=== PATIENT | female | born 1955 | race African-American/Black ===

== ENCOUNTER → 2017-04-10 | Outpatient (CLI) | END | disposition home or self-care (01) ==

== ENCOUNTER → 2017-04-11 | Outpatient (CLI) | payer MEDICARE, OTHER ==
[~2017-04-11] MED LIST: AMLO5TAB4 PO; ATOR20TA38 PO; CIPR500T4 PO; FOLI-49 PO; LANT3I SC; LOSA100T7 PO; MAGN400T28 PO; METF1000 PO; METO-448 PO; NOVO3I SC; RIVA20TA5 PO; SOTA80TA53 PO
--- NOTE | 2017-04-12 14:56 | HKNOTE ---
DATE OF SERVICE: 04/11/2017 CHIEF COMPLAINT: Right hip pain. HISTORY OF PRESENT ILLNESS: Randi Crawley is a 61-year-old female who is here for evaluation of righ t hip pain. The patient has a history of hip dislocation when she was 9 years old. She has had tr ouble with her right hip for many, many years. She has managed until now, but now the pain has reac hed a point where it is interfering with her routine activities. Pain is associated with severe sti ffness of the right hip and pain in the right groin that radiates to the thigh. She also has shorte chong of the right lower extremity. The pain has reached a point where she would like to proceed wit h a total hip replacement. She is here for a discussion of surgery. PAST MEDICAL HISTORY: Significant for atrial fibrillation, hypertension, diabetes. MEDICATIONS: Include: 1. Metformin. 2. Insulin. 3. Xarelto. 4. Losartan. 5. Sotalol. 6. Diltiazem. 7. Lipitor. ALLERGIES: NONE. REVIEW OF SYSTEMS: Negative for chest pain, shortness of breath, nausea, vomiting, or diarrhea. Po sitive for cardiac arrhythmia and right hip pain. PHYSICAL EXAMINATION: GENERAL: Shows a pleasant female. She is anxious, awake, alert and oriented. VITAL SIGNS: Stable with a pulse rate of 81. She is 5 foot 5 inches, 191 pounds, respirations 16 per minute. She is breathing comfortably. MUSCULOSKELETAL: Right hip has 2 cm of shortening compared to left. The right hip has severely shaffer ited range of motion with flexion of 50 degrees, external rotation 0, internal rotation 0 and a fixe d flexion deformity of 30 degrees. There is no neurovascular deficit in the right lower extremity. Left hip has good range of motion. Lumbar spine is tender with no obvious deformity. IMAGING: X-rays of the right hip were reviewed and show advanced osteoarthritis with a somewhat dys plastic appearance of the hip. There is complete loss of cartilage deformity of the femoral head an d osteophyte formation. ASSESSMENT AND PLAN: A 61-year-old female with advanced arthritis of her right hip. Treatment opti ons were discussed. She would like to proceed with right total hip replacement. Anterior total hip replacement was discussed. Risks and benefits were discussed, as well. She will need a cardiology and internal medicine clearance and will be scheduled for surgery in the near future. Risks and be nefits were discussed with her in detail. She understands and agrees with the plan. Dictated By: EUGENE DENIS MD [facility]AS Conf#: [id number] DID#: [id number]
== END | disposition home or self-care (01) ==
LOC: HKI 14:37
PROVIDERS: ATTEND Orthopaedic Surgery
DX: M16.11 Unilateral primary osteoarthritis, right hip (principal)
CPT/HCPCS: G0463

== ENCOUNTER → 2017-07-18 | Outpatient (CLI) | END | disposition home or self-care (01) ==

== ENCOUNTER → 2018-01-26 | Outpatient (CLI) | END | disposition home or self-care (01) ==

== ENCOUNTER → 2018-02-23 | Outpatient (CLI) | END | disposition home or self-care (01) ==

== ENCOUNTER → 2018-03-03 | Outpatient (CLI) | END | disposition home or self-care (01) ==

== ENCOUNTER → 2018-03-03 | Outpatient (CLI) | END | disposition home or self-care (01) ==

== ENCOUNTER 2018-06-19 07:49 | Emergency (ER) | payer MEDICARE, OTHER ==
[~2018-06-19] VITALS: Ht 165.1 cm; Wt 86.0 kg
[~2018-06-19 07:49] MED LIST changes: -AMLO5TAB4 PO; +ASCO500C7 PO; +CHOL10009 PO; -CIPR500T4 PO; +DILT300T PO; +HYDR-3672 PO; +LOSA100T15 PO; -LOSA100T7 PO; +MAGN400T27 PO; -MAGN400T28 PO; -METF1000 PO; +METF100010 PO; -METO-448 PO; +SOTA160T PO; -SOTA80TA53 PO
[2018-06-19 07:51] VITALS: BP 182/74; PULSE 82; RESP 18; Ht 165.1 cm; Wt 86.0 kg
--- NOTE | 2018-06-19 08:12 | ERD ---
ER Documentation Chief Complaint Chief Complaint pt bib family with c/o right sided hip pain, starting last night, HPI 63-year-old female, with history of severe osteoarthritis of the right hip, presents to the emergency department, brought in by family, complaining of acute onset of worsening of the right side pain that started last night. The pain is sharp, constant, 7/10, no history of trauma. The patient was scheduled for a hip replacement a couple months ago that it had to be postponed due to anemia. ROS All systems reviewed and are negative except as per history of present illness. Medications Home Meds Active Scripts Hydrocodone/Acetaminophen (Shobonier 5-325 Tablet) 1 Each Tablet, 1 TAB PO BID PRN for PAIN, #10 TAB Prov:ABIGAIL BARRIOS MD 06/19/18 Reported Medications Insulin Glargine* (Lantus*) 100 Unit/Ml Soln, 15 UNIT SC QHS, #1 VIAL 03/04/18 Magnesium Oxide* (Mag-Oxide*) 400 Mg Tablet, 400 MG PO EVERY OTHER DAY, TAB 03/04/18 Atorvastatin Calcium* (Atorvastatin Calcium*) 20 Mg Tablet, 20 MG PO QHS, #30 TAB 03/04/18 Sotalol Hcl* (Sotalol Hcl*) 160 Mg Tablet, 160 MG PO BID, TAB 03/04/18 Folic Acid* (Folic Acid*) 1 Mg Tablet, 1 MG PO DAILY, TAB 03/04/18 Rivaroxaban* (Xarelto*) 20 Mg Tablet, 20 MG PO WITH DINNER, TAB 03/04/18 Losartan Potassium* (Losartan Potassium*) 100 Mg Tablet, 100 MG PO DAILY, TAB 03/04/18 Hydralazine Hcl* (Hydralazine Hcl*) 50 Mg Tab, 50 MG PO BID PRN for ELEVATED BLOOD PRESSURE, #60 TAB 03/04/18 Diltiazem Hcl* (Cardizem LA*) 300 Mg Tab.sr.24h, 300 MG PO DAILY, #30 TAB.SA 03/04/18 Cholecalciferol (Vitamin D3) 1,000 Unit Capsule, 1000 UNIT PO DAILY, CAP 03/04/18 Ascorbic Acid* (Vitamin C*) 500 Mg Capsule.sa, 500 MG PO DAILY, CAP 03/04/18 Metformin Hcl* (Metformin Hcl*) 1,000 Mg Tablet, 1000 MG PO WITH BREAKFAST DINNE, #60 TAB 03/04/18 Insulin Aspart* (Novolog Insulin Pen*) 100 Unit/Ml Soln, 0 SC .SLIDING SCALE AC, EA WITH MEALS 03/04/18 Allergies Allergies: Coded Allergies: Latex, Natural Rubber (Verified Allergy, Unknown, 03/04/18) Pork/Porcine Containing Products (Unverified Allergy, Unknown, 03/04/18) PMhx/Soc History of Surgery: Yes (gallbladder) Anesthesia Reaction: No Hx Neurological Disorder: No Hx Respiratory Disorders: No Hx Cardiac Disorders: Yes (AFIB, HTN, HIGH CHOLESTEROL) Hx Psychiatric Problems: Yes (DEPRESSION) Hx Miscellaneous Medical Probl: No Hx Alcohol Use: No Hx Substance Use: No Hx Tobacco Use: No FmHx Family History: No diabetes, No coronary disease Physical Exam Vitals Vital Signs Date Temp Pulse Resp B/P (MAP) Pulse Ox O2 O2 Flow FiO2 Time Delivery Rate 06/19/18 98.9 82 18 182/74 98 07:51 (110) Physical Exam Const: No acute distress Head: Atraumatic Eyes: Normal Conjunctiva ENT: Normal External Ears, Nose and Mouth. Neck: Full range of motion. No meningismus. Resp: Clear to auscultation bilaterally Cardio: Regular rate and rhythm, no murmurs Abd: Soft, non tender, non distended. Normal bowel sounds Skin: No petechiae or rashes Back: No midline or flank tenderness Ext: Right hip: No gross deformity, tenderness over the right great t rochanter, adequate passive range of motion. Distal neurovascular exam intact Neur: Awake and alert Psych: Normal Mood and Affect Results 24 hrs Current Medications Medications Dose Sig/Pradeep Start Time Status Last (Trade) Ordered Route PRN Stop Time Admin Dose Reason Admin 1 tab ONCE ONCE 06/19/18 DC 06/19/18 Acetaminophen PO 08:30 08:33 / 06/19/18 08:31 Hydrocodone Bitart (Shobonier (5/325)) Patient: KRIS HERRERA : 1955 Age: 63 Sex: F MR #: [id number] DOS: 06/19/18823 Ordering MD: ABIGAIL BARRIOS MD Location: [facility] Room/Bed: PROCEDURE: XR Hip. CLINICAL INDICATION: acute Rt hip pain x1d TECHNIQUE: AP and frog lateral views of the right hip were performed. COMPARISON: Hip radiograph from 04/10/2017. FINDINGS: No acute fracture detected, however evaluation is limited by osteopenia and severe degenerative joint disease with high-grade joint space narrowing marginal osteophyte formation. Small vascular phleboliths over the pelvis. IMPRESSION: Severe degenerative joint disease of the right hip without evidence of superimposed fracture, allowing for the limitation of osteopenia. RPTAT:AAJJ Physician [place] Date Time Electronically viewed and signed by Physician [place] on 06/19/2018 09:42 Procedures/MDM Acute on chronic right hip pain: no red flags. Differential diagnosis include but not limited to: Hip contusion, tendon/ligament injury, arthritis; low suspicion for fracture, dislocation, septic arthritis. Neurovascular exam grossly intact. no clinical findings suggestive of acute infectious process, no acute deformity, no edema, no rashes. Pertinent Data: X-rays: No fracture or dislocation Physical examination and clinical presentation consistent most likely with acute on chronic hip pain secondary to arthritis. During the ED course the patient received treatment with Shobonier p.o. presenting overall improvement of the symptoms. Results and clinical impression discussed with the patient who agrees with management. The patient is stable to be treated outpatient and will be discharged home with recommendations for ice, rest and Shobonier. The patient was instructed to follow up with the primary care provider in the next 48h. If symptoms persist, worsen or new symptoms develop, then patient should return to the ED immediately. Instructions explained and given to patient with acknowledgment and demonstrated understanding. Disclaimer: Inadvertent spelling and grammatical errors are likely due to EHR/dictation software use and do not reflect on the overall quality of patient care. Also, please note that the electronic time recorded on this note does not necessarily reflect the actual time of the patient encounter. Departure Diagnosis: Primary Impression: Arthritis of right hip Condition: Stable Additional Instructions: Thank you very much for allowing us to participate in your care. Your health and safety is our top priority at [facility]. Call your primary care doctor TOMORROW for an appointment during the next 2-4 days and bring all the information and medications prescribed. Have prescriptions filled and follow precisely the directions on the label. If the symptoms get worse and your provider is unavailable, return to the Emergency Department immediately. ABIGAIL BARRIOS MD Jun 19, 2018 08:12
[2018-06-19] MEDS ORDERED: HYDROCODONE/APAP (5/325) TAB PO ONE (08:30)
[2018-06-19] MEDS ORDERED: HYDR-4011 PO (10:00)
== END 2018-06-19 10:14 | disposition home or self-care (01) ==
LOC: FTE 07:49
DX: M13.851 Other specified arthritis, right hip (principal); I10 Essential (primary) hypertension; Z79.4 Long term (current) use of insulin; Z91.040 Latex allergy status
CPT/HCPCS: 73510